=== PATIENT | female | born 1930 | race Caucasian/White ===

== ENCOUNTER 2016-08-28 03:44 | Inpatient (IN) | payer MEDICARE, OTHER, MEDICAID ==
[~2016-08-28] VITALS: Ht 154.9 cm; Wt 68.8 kg
--- NOTE | ~2016-08-28 | DS ---
PATIENT'S NAME: JUSTIN SMITH [facility] AGE: 85 Y [address] ROOM: [address] [address] LOCATION: [facility] [place] ADMIT DATE: 08/28/2016 Discharge Summary DISCHARGE DATE: 08/30/2016 FAMILY PHYSICIAN: RAFAEL COPPOLA PA-C ATTENDING PHYSICIAN: Mitzy Hilton PRINCIPAL DIAGNOSES: 1. Abdominal pain. 2. 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 3. Chronic obstructive pulmonary disease. 4. Iatrogenic hyperthyroidism. 5. Chronic kidney disease 3. HOSPITAL COURSE: Please reference any of the admitting data to the history and physical dictated by Dr.Chung Saldaña. An 85-year-old female who was admitted with abdominal pain with CT scan concerning for cecal volvulus. She was given supportive cares. A consultation ensued with Gastroenterology Service, Dr. Urban. An abdominal x-ray was ordered to further evaluate. An NG tube was placed with low intermittent suction, and the patient was kept nothing by mouth. Neostigmine was then ordered and given. Consultation with Surgery was ordered. Dr. Matt Anderson of General Surgery evaluated the patient to find improvement with the x-ray, so a barium enema imaging order was obtained, which showed no evidence of blockage or volvulus. The contrast entered the small bowel easily, so no surgery was indicated. Clinically, she also showed improvement by next day. The NG tube was pulled. She was started on diet and tolerated it well. The patient did mobilize safely. The remaining of her chronic conditions were maintained by her home medicines without any complications. DVT prophylaxis maintained with pneumatic compression devices and was started on Lovenox when no surgery was indicated. CONSULTING PROVIDERS: 1. Dr. Urban of Gastroenterology. 2. Dr. Anderson, Surgery. LABORATORY FINDINGS: Laboratory findings show a CBC on 08/29/2016 as white blood cell count of 6.8, hemoglobin of 11.2, hematocrit of 33.8, and a platelet count of 115. Chemistry panel on 08/29/2016 showed a sodium of 143, potassium of 3.5, chloride of 111, CO2 of 25, BUN of 24, creatinine of 1.6 down from 1.9 on admission. Liver functions were within normal limits. Amylase was 57 and lipase was 166. Lactate was 1.0. PATIENT'S NAME: JUSTIN SMITH [facility] AGE: 85 Y [address] ROOM: [id number] [place], [place] [address] LOCATION: [facility] [place] ADMIT DATE: 08/28/2016 Discharge Summary DISCHARGE DATE: 08/30/2016 FAMILY PHYSICIAN: RAFAEL COPPOLA PA-C ATTENDING PHYSICIAN: Mitzy Hilton A TSH was 0.144 and a free T4 was 2.0. RADIOLOGIC IMAGING: CT findings from outside hospital as reviewed in the hospital course. Unprepped barium enema showed free flow of the barium through the colon with no obstructing or constricting colon lesion identified. No findings of the colon volvulus were identified. Abdominal x-ray showed no free air with a nondistended small bowel loop and nondistended colon with improvement in the bowel pattern when compared to the previous imaging. The abdominal x-ray on 08/29/2016 for followup showed a small volume of residual barium suspension visualized in the colon. DISCHARGE MEDICATIONS: 1. Citracal D one tablet p.o. every day. 2. Levothyroxine 75 mcg p.o. every day before breakfast. This is a dose change. 3. Simvastatin 40 mg p.o. every night at bedtime. 4. Incruse Ellipta inhaler one puff inhalation every day. 5. Tylenol 1000 mg p.o. every 4 hours as needed. 6. Ibuprofen 200 mg p.o. every 6 hours as needed. 7. FiberCon one tablet p.o. every day. 8. Lasix 40 mg p.o. every day. 9. Lisinopril 20 mg p.o. every day. To be held until followup with primary care provider secondary to a creatinine of 1.6. 10. Probiotic one tablet p.o. every day. 11. Prolia 1 mL subcutaneous every six months. 12. Meclizine 1 tablet p.o. every day. 13. Symbicort 160/4.5 mcg inhaler 2 puffs inhalation twice daily. DISCHARGE INSTRUCTIONS: The patient will be discharged to home. Diet to remain low sodium. Activity as tolerated. She should have followup appointment with her primary care provider, Rafael Coppola PA-C, in [place], [place], on 09/06/2016 at 10 a.m. At that followup, she should have addressed a complete metabolic panel to evaluate her renal function as her most recent creatinine was 1.6 while in the hospital. Her ALEX inhibitor should be held until further evaluated and recommendations can be made by her primary care provider. Blood pressure was stable at PATIENT'S NAME: JUSTIN SMITH [facility] AGE: 85 Y [address] ROOM: [place] [address] LOCATION: [facility] [place] ADMIT DATE: 08/28/2016 Discharge Summary DISCHARGE DATE: 08/30/2016 FAMILY PHYSICIAN: RAFAEL COPPOLA PA-C ATTENDING PHYSICIAN: Mitzy Hilton discharge. The patient should also have a followup of her thyroid stimulating hormone and free T4 in six weeks secondary to the changes in her medication regimen. The above line of management was discussed with the patient who stated complete understanding of the outlined plan. All questions were answered with statements of satisfaction. Thank you for allowing us to participate in the care of this patient while at [facility]. LUCY BORRERO APRN, APRN FOR MD YUNI ALVAREZ/eliud /[id number] CC: RAFAEL COPPOLA PA-C d: t: 09/09/16 0421, DISCHARGE SUMMARY
--- NOTE | ~2016-08-28 | HP ---
PATIENT'S NAME: JUSTIN SMITH [facility] AGE: 85 Y [address] ROOM: [place] [address] LOCATION: [facility] [place] ADMIT DATE: 08/28/2016 History & Physical DISCHARGE DATE: FAMILY PHYSICIAN: PHYSICIAN, UNKNOWN ATTENDING PHYSICIAN: CHEIKH ZAVALA DATE OF SERVICE: CHIEF COMPLAINT: Abdominal pain. HISTORY OF PRESENT ILLNESS: This is an 85-year-old female, very pleasant female, who says that yesterday morning she woke up with diffuse abdominal pain, intensity about 4- 6/10. It is constant. Last time she had a bowel movement was yesterday morning and it was normal. Last night, the pain persisted, and she also felt nauseous. She actually vomited once of bilious contents. Last night, she passed flatus. Because of the diffuse abdominal pain, the patient went to outside facility last night for evaluation. At the outside facility in [place], CT scan of the abdomen and pelvis without contrast shows abnormal appearance of the cecum. Cecal volvulus should be excluded. The cecum is located in the left abdomen and distended with mild adjacent edema. The remainder of the colon is decompressed. The small bowel is not dilated. Small pancreatic calcifications are consistent with mild chronic pancreatitis. Blood work was remarkable for creatinine of 2.3 and GFR over 22 and leukocytosis with white blood cells of 12.1. Lipase was normal. Because of the concern for the cecal volvulus, the patient was referred here. When the patient was transferred here, I also spoke to the on-call software quality engineer, Dr. Urban, and already recommended the recommendation, which I will be dictating in my assessment and plan. The plan of care has been formulated with the on-call software quality engineer. REVIEW OF SYSTEMS: As mentioned in the history of present illness. All other systems were reviewed and they were negative except those mentioned in the history of present illness. PAST MEDICAL HISTORY: 1. CKD stage 3. 2. Hyperlipidemia. 3. COPD, not on home oxygen. 4. History of C diff in the past. 5. Hypertension. 6. Hypothyroidism. PATIENT'S NAME: JUSTIN SMITH [facility] AGE: 85 Y [address] ROOM: [place] [address] LOCATION: [facility] [place] ADMIT DATE: 08/28/2016 History & Physical DISCHARGE DATE: FAMILY PHYSICIAN: PHYSICIAN, UNKNOWN ATTENDING PHYSICIAN: CHEIKH ZAVALA ALLERGIES: DIFLUCAN AND LEVAQUIN. HOME MEDICATIONS: Currently has been reconciled. SOCIAL HISTORY: The patient was a former cigarette smoker. She quit about 5 years ago. She smoked about 1 pack per day for 50 years. She denies any alcohol or any illegal drug use. FAMILY HISTORY: Both parents from [facility] at old age. PAST SURGICAL HISTORY: 1. Tonsillectomy. 2. Right ovarian cyst removal. 3. Hysterectomy. 4. Abdominal hernia surgery x2 in the past. PHYSICAL EXAMINATION: VITAL SIGNS: At the time of my evaluation, temperature was 98.5, heart rate was 91, respirations were 16, blood pressure was 155/94, saturation was 94% on room air. GENERAL APPEARANCE: Alert and oriented x3, in no acute distress. HEENT: Pupils are equally round and reactive to light. Extraocular muscles intact. Anicteric sclerae. Nasal turbinates are normal bilaterally. Moist oral mucosa. NECK: No JVD. CARDIOVASCULAR: Regular rate and rhythm. Normal S1, S2. No murmur, no rubs, no gallops. RESPIRATORY: Clear to auscultation. No rales, no rhonchi, no crackles, no wheezing. ABDOMEN: Obese, mildly distended, diffusely tender to palpation about 2-3/10 intensity. No rebound, no abdominal rigidity. Bowel sounds are present. No mass. EXTREMITIES: No edema in upper or lower extremities. SKIN: No ulcer, no rash, no cyanosis. NEUROLOGICAL: Grossly nonfocal. LABORATORY DATA: Blood work from our facility is currently pending. Blood work from the outside facility on the day of transfer showed sodium 132, potassium 4.0, chloride 96, carbon dioxide 23, anion gap 17, glucose 144, BUN 40. Creatinine 2.3. Calcium 10.0. Total protein 7.4, albumin 3.8, alkaline phosphatase 102, PATIENT'S NAME: JUSTIN SMITH [facility] AGE: 85 Y [address] ROOM: [place] [address] LOCATION: [facility] [place] ADMIT DATE: 08/28/2016 History & Physical DISCHARGE DATE: FAMILY PHYSICIAN: PHYSICIAN, UNKNOWN ATTENDING PHYSICIAN: CHEIKH ZAVALA ALT 18, AST 19, total bilirubin is 0.7. GFR 22, amylase 79, lipase 214, CRP 1.9. White blood cells 12.1, hemoglobin 13.7, hematocrit 40.9, and platelets 122. Urinalysis, negative for UTI. IMAGES: As mentioned in the history of present illness, the CT scan of the abdomen and pelvis. ASSESSMENT AND PLAN: 1. Regarding her abdominal pain, it is concerning for a cecal volvulus: I have already spoken to the on-call GI and the plan per GI recommendation will be n.p.o. Tap water enema 1 L x1, Neostigmine IV 2 mg given over 5 minutes. I will monitor the heart rate very closely to watch for bradycardia and have the atropine in the room ready if it becomes bradycardic. Get a complete gastrointestinal series of x-ray in the morning. IV fluids for hydration. Pain control with IV morphine p.r.n., Zofran p.r.n. for nausea. Further plan will depend on clinical course and per GI evaluation in the morning. 2. Regarding her chronic kidney disease stage 3: Currently, it seems to be acute kidney injury on chronic kidney disease stage III: IV fluids for hydration. 3. Regarding her chronic obstructive pulmonary disease: Not in flare. We will continue nebulization p.r.n. 4. Regarding her hypertension: Home medication has to be reconciled first before it can be addressed. Depending on the blood pressure, we will decide about to continue or to hold the home blood pressure medication for now. 5. Regarding her hypothyroidism: We will check a TSH and titrate the home dose of levothyroxine if needed. 6. Regarding her hyperlipidemia: Home medication has to be reconciled first before it can be addressed. 7. She is a DO NOT RESUSCITATE/DO NOT INTUBATE. 8. Deep vein thrombosis prophylaxis: Compression devices for now given that the patient may require colonoscopy for decompression. Time spent in care on the day of admission 50 minutes, where 20 minutes was spent on chart review, and 30 minutes was in coordination of care with the on- call gastroenterology about the plan of care and also including counseling to the patient about addressing all her questions and concerns to her satisfaction and I also went over the plan of care in detail with the patient and the patient's nurse. Further plan will depend on clinical course. CHEIKH ZAVALA MD PATIENT'S NAME: JUSTIN SMITH [facility] AGE: 85 Y [address] ROOM: [place] [address] LOCATION: [facility] [place] ADMIT DATE: 08/28/2016 History & Physical DISCHARGE DATE: FAMILY PHYSICIAN: PHYSICIAN, UNKNOWN ATTENDING PHYSICIAN: CHEIKH ZAVALA/eliud /[id number] D: [id number] T: [id number] HISTORY & PHYSICAL
--- NOTE | ~2016-08-28 | CON ---
PATIENT'S NAME: JUSTIN SMITH [facility] AGE: 85 Y [address] ROOM: [place] [address] LOCATION: [facility] [place] ADMIT DATE: 08/28/2016 Consultation DISCHARGE DATE: FAMILY PHYSICIAN: RAFAEL COPPOLA PA-C ATTENDING PHYSICIAN: CHEIKH ZAVALA DATE OF CONSULTATION: 08/28/2016 REFERRING PHYSICIAN: Nyasia Urban MD CHIEF COMPLAINT: Concern for possible cecal volvulus. HISTORY OF PRESENT ILLNESS: The patient is an 85-year-old female, who was in her usual state of good health a couple of days ago. Then a day or so ago, she developed a fairly abrupt onset of diffuse abdominal distention and pain. She did have some nausea at times but no vomiting. She went to a local emergency room where she had a CT scan that did not diagnose a cecal volvulus but was felt to be concerning for it. She was transferred to [facility]. She had x- rays this morning that really did not show evidence of volvulus and no evidence of obstruction. On my arrival, the patient states she had some intermittent gas type pains earlier today but minimal pain now. She had a bowel movement yesterday and has passed a small amount of flatus since then. She reports she has had episodes like this in the past. There has been a few years since the last one. She is not aware of any evidence of a volvulus or twisted bowel in the past. She has had a previous exploratory laparotomy for adhesions many years ago. PAST MEDICAL HISTORY: Positive for stage 3 kidney disease, hypercholesterolemia, COPD, hypertension, hypothyroidism. PREVIOUS SURGERIES: Include cataracts, total hysterectomy, exploratory laparotomy with lysis of adhesions, tonsils and adenoids. MEDICATIONS: 1. FiberCon. 2. Ibuprofen. 3. Albuterol. 4. Levothyroxine. 5. Lisinopril. 6. Meclizine. 7. Probiotic. 8. Prolia. PATIENT'S NAME: JUSTIN SMITH [facility] AGE: 85 Y [address] ROOM: [place] [address] LOCATION: [facility] [place] ADMIT DATE: 08/28/2016 Consultation DISCHARGE DATE: FAMILY PHYSICIAN: RAFAEL COPPOLA PA-C ATTENDING PHYSICIAN: CHEIKH ZAVALA 9. Simvastatin. 10. Symbicort. ALLERGIES: DIFLUCAN AND LEVAQUIN. SOCIAL HISTORY: The patient is . She has 2 children. She is a former smoker with a 50- pack-year history. No history of alcohol abuse. REVIEW OF SYSTEMS: Documented in the nursing assessment form, and it has been reviewed with the patient. PHYSICAL EXAMINATION: GENERAL: The patient is an elderly but well-nourished female. She is alert and oriented. She does not appear to be in any obvious distress or discomfort. VITAL SIGNS: Temperature 98.5, blood pressure 155/94, pulse 91, respirations 16, saturations are 94%. HEENT: Normocephalic, atraumatic. Pupils are equal. There is no scleral icterus. External ears, nose, and eyelids are unremarkable. The oropharynx is clear. She does have an NG tube in her nares. NECK: Trachea is midline. There are no masses or adenopathy. Breathing is nonlabored. There is no accessary muscle use. LUNGS: Clear to auscultation without rales, rhonchi, or wheezing. HEART: Regular rate and rhythm. ABDOMEN: Mildly distended. She does have bowel sounds present. When palpating the abdomen, she states that it does not feel good but does not really elicit any real pain response. No focal pain. No rebound or guarding. No obvious hernias other than a small umbilical hernia. EXTREMITIES: No cyanosis or clubbing. She is moving all 4 extremities. ASSESSMENT AND PLAN: An 85-year-old female with concerns of cecal volvulus. Unfortunately, the CAT scan is not really diagnostic, and the x-ray today even looks a little better. She certainly does not look toxic at this point. I do not see anything pushing us into exploratory laparotomy, even though if this is a cecal volvulus, we will probably need exploration. I think we will plan on obtaining a barium enema to either rule in or out a cecal volvulus and get a better look at this. I discussed this all with the patient. PATIENT'S NAME: JUSTIN SMITH [facility] AGE: 85 Y [address] ROOM: [place] [address] LOCATION: [facility] [place] ADMIT DATE: 08/28/2016 Consultation DISCHARGE DATE: FAMILY PHYSICIAN: RAFAEL COPPOLA PA-C ATTENDING PHYSICIAN: CHEIKH ZAVALA MD JTM/modl /[id number] CC: Nyasia Urban MD d: 08/28/16 2137 t: 09/02/16 0944, CONSULTATION REPORT
--- NOTE | ~2016-08-28 | CON ---
[facility]GE[facility] 85 Y [address] ROOM: [place] [address] LOCATION: [facility] [place] ADMIT DATE: 08/28/2016 Consultation DISCHARGE DATE: FAMILY PHYSICIAN: PHYSICIAN, UNKNOWN ATTENDING PHYSICIAN: CHEIKH ZAVALA REASON FOR CONSULT: Abdominal distention, question of cecal volvulus. HISTORY OF PRESENT ILLNESS: This is an 85-year-old female, who was transferred from [facility] in [place] with history of abdominal distention and CT scan of the abdomen, questioning cecal volvulus. The patient was seen in her local emergency room with history of abdominal distention, nausea with CT scan of the abdomen and findings as noted above. She was transferred here early this morning for further management. At the present time, she complains of abdominal distention, but denies any nausea and vomiting and did not require any narcotics during the night. She states she has had a similar issue; however, not clear several years ago when she was transferred to [place] and was treated with conservative management. Initial blood work at her local hospital did reveal mildly elevated white cell count, but otherwise, her labs were relatively unremarkable. PAST MEDICAL HISTORY: 1. Chronic obstructive pulmonary disease. 2. Hypertension. 3. Hypothyroidism. 4. Chronic renal failure. PAST SURGICAL HISTORY: Total hysterectomy, previous appendectomy, and abdominal surgery for adhesions. MEDICATIONS: At home included: 1. Citracal. 2. FiberCon. 3. Lasix. 4. Ibuprofen. 5. Synthroid. 6. Lisinopril. 7. Simvastatin. 8. Tylenol. [facility]GE[facility] 85 Y [address] ROOM: [address] [address] LOCATION: [facility] [place] ADMIT DATE: 08/28/2016 Consultation DISCHARGE DATE: FAMILY PHYSICIAN: PHYSICIAN, UNKNOWN ATTENDING PHYSICIAN: CHEIKH ZAVALA ALLERGIES: NOTED TO DIFLUCAN AND LEVAQUIN. SOCIAL HISTORY: Former smoker [id number] smoking. None recently. Denies alcohol use. FAMILY HISTORY: None for GI cancer. REVIEW OF SYSTEMS: The 10-point review of systems is otherwise negative except as noted above. PHYSICAL EXAMINATION: GENERAL: Elderly female in no acute distress. VITAL SIGNS: As recorded in the nursing sheet are stable. HEENT: Nonicteric sclerae. Pupils are round and reactive. NECK: Supple without palpable nodes or thyromegaly. CHEST: Clear to auscultation. HEART: S1, S2 normal. ABDOMEN: Distended with tympanitic bowel sounds. There is mild diffuse tenderness more so on the left upper quadrant without rebound or rigidity. RECTAL: No impaction. There are brownish stools. EXTREMITIES: No edema. NEUROLOGIC: Awake, alert, and appropriate without any focal deficits. LABORATORY DATA: Further lab work and abdominal films are ordered and are pending. ASSESSMENT AND PLAN: An 85-year-old female with abdominal distention and question of cecal volvulus as per CT scan of the abdomen. More than likely, this will require a surgical intervention and therefore, I called the surgeon on-call, Dr. Anderson, in regard to his involvement with this patient's care. I have spoken to the hospitalist who admitted the patient, Dr. Zavala, as well as the plan of care with the patient herself. We will await the results of her abdominal symptoms with further direction in association with the surgeon's input prior to any invasive procedures. Thank you for this consult. KAYLEE ANDRADE MD PATIENT'S NAME: JUSTIN SMITH [facility] AGE: 85 Y [address] ROOM: [place] [address] LOCATION: [facility] [place] ADMIT DATE: 08/28/2016 Consultation DISCHARGE DATE: FAMILY PHYSICIAN: PHYSICIAN, UNKNOWN ATTENDING PHYSICIAN: CHEIKH ZAVALA AM/eliud /[id number] d: 08/28/1658 t: 08/28/16 0933, CONSULTATION REPORT
[2016-08-28] MEDS ORDERED: FIBERCON1 TAB PO (04:56)
[2016-08-28] MEDS ORDERED: LASIX40 MG PO (04:56)
[2016-08-28] MEDS ORDERED: CITRACAL+D(315M1 TAB PO (04:56)
[2016-08-28] MEDS ORDERED: IBUPROFEN IB200 MG PO (04:58)
[2016-08-28] MEDS ORDERED: INCRUSE ELLI62.5 MCG INH (05:17)
[2016-08-28] MEDS ORDERED: LEVOTHROID (S112 MCG PO (05:18)
[2016-08-28] MEDS ORDERED: PROBIOTIC1 EAC1 PO (05:19)
[2016-08-28] MEDS ORDERED: PRINIVIL (ZESTR20 MG PO (05:19)
[2016-08-28] MEDS ORDERED: PROLIA60 MG/ML SUB-Q (05:21)
[2016-08-28] MEDS ORDERED: ZOCOR40 MG PO (05:22)
[2016-08-28] MEDS ORDERED: MECLIZINE HCL25 MG PO (05:23)
[2016-08-28] MEDS ORDERED: TYLENOL EXTRA500 MG PO (05:24)
[2016-08-28] MEDS ORDERED: SYMBICORT 16010.2 GM INH (05:28)
[2016-08-28 11:37] LABS: BASOPHIL % 0.3 %; EOSINOPHIL # 0.2 K/uL (0.0-0.5); HEMATOCRIT 37.7 % (30.0-46.0); HEMOGLOBIN 12.7 g/dL (10.0-15.0); IMMATURE GRANULOCYTE # 0.1 K/uL (0.0-0.3); IMMATURE GRANULOCYTE % 0.7 %; LYMPHOCYTE # 0.6 K/uL (0.8-4.0); LYMPHOCYTE % 6.1 %; MCH 32.8 pg (27.0-34.0); MCHC 33.7 gm/dL (32.0-36.5); MCV 97.4 fl (83.0-98.0); MONOCYTE # 0.8 K/uL (0.0-1.0); MONOCYTE % 8.6 %; MPV 10.1 fl (9.4-12.4); NEUTROPHIL # (ANC) 7.6 K/uL (1.8-7.8); NEUTROPHIL % 82.3 %; NRBC % 0 /100WBC (0-0.00); PLATELET COUNT 118 K/uL (150-450); RBC 3.87 M/uL (3.00-5.00); WBC 9.2 K/uL (4.0-11.0)
[2016-08-28 11:46] LABS: INR - (THERAPEUTIC) 1.02 (0.92-1.07); PROTIME 10.7 SECONDS (9.8-11.4); PTT 32 SECONDS (25-32)
[2016-08-28 11:59] LABS: ALBUMIN 3.3 gm/dL (3.5-5.0); ANION GAP 15.2 (10.0-19.0); CALCIUM 8.6 mg/dL (8.5-10.5); CREATININE 1.9 mg/dL (0.5-1.1); POTASSIUM 4.2 mMol/L (3.7-5.1); TOTAL BILIRUBIN 0.8 mg/dL (0.0-1.5); TOTAL PROTEIN 6.4 g/dL (6.0-8.4)
[2016-08-28 12:58] LABS: ALBUMIN 3.3 gm/dL (3.5-5.0); TOTAL BILIRUBIN 0.7 mg/dL (0.0-1.5); TOTAL PROTEIN 6.8 g/dL (6.0-8.4)
[2016-08-28 13:23] LABS: BILIRUBIN URINE NEGATIVE (NEGATIVE); BLOOD URINE NEGATIVE /UL (NEGATIVE); COLOR URINE YELLOW (YELLOW); GLUCOSE URINE NEGATIVE (NEGATIVE); KETONE URINE NEGATIVE (NEGATIVE); LEUKOCYTES URINE 25 /UL (NEGATIVE); NITRITE URINE NEGATIVE (NEGATIVE); PROTEIN URINE 30 mg/dL (NEGATIVE); SPEC GRAVITY URINE 1.005 (1.003-1.035); TURBIDITY URINE CLEAR (CLEAR); UROBILINOGEN URINE NORMAL (NORMAL)
[2016-08-28 13:40] LABS: BACTERIA URINE MODERATE (NEGATIVE); RBC URINE 0-2 #/HPF (NEGATIVE)
[2016-08-28 13:41] LABS: AMORPHOUS URINE 1+ (NEGATIVE)
[2016-08-29 05:52] LABS: BASOPHIL % 0.4 %; EOSINOPHIL # 0.2 K/uL (0.0-0.5); EOSINOPHIL % 2.5 %; HEMATOCRIT 33.8 % (30.0-46.0); HEMOGLOBIN 11.2 g/dL (10.0-15.0); IMMATURE GRANULOCYTE % 0.3 %; LYMPHOCYTE # 0.7 K/uL (0.8-4.0); LYMPHOCYTE % 9.6 %; MCH 32.4 pg (27.0-34.0); MCHC 33.1 gm/dL (32.0-36.5); MCV 97.7 fl (83.0-98.0); MONOCYTE # 0.8 K/uL (0.0-1.0); MONOCYTE % 12.1 %; MPV 10.4 fl (9.4-12.4); NEUTROPHIL # (ANC) 5.1 K/uL (1.8-7.8); NEUTROPHIL % 75.1 %; NRBC % 0 /100WBC (0-0.00); PLATELET COUNT 115 K/uL (150-450); RBC 3.46 M/uL (3.00-5.00); RDW-CV 13.1 % (11.9-14.6); WBC 6.8 K/uL (4.0-11.0)
[2016-08-29 06:11] LABS: ANION GAP 10.5 (10.0-19.0); CALCIUM 8.1 mg/dL (8.5-10.5); CREATININE 1.6 mg/dL (0.5-1.1); POTASSIUM 3.5 mMol/L (3.7-5.1)
== END 2016-08-30 16:45 | disposition disaster alternative care site (69) | DRG 389 ==
LOC: GMSU 04:14
PROVIDERS: Internal Medicine; ADMIT Internal Medicine
DX: K56.2 Volvulus (principal); N17.9 Acute kidney failure, unspecified; K86.1 Other chronic pancreatitis; I50.9 Heart failure, unspecified; J44.9 Chronic obstructive pulmonary disease, unspecified; I12.9 Hypertensive chronic kidney disease with stage 1 through stage 4 chronic kidney disease, or unspecified chronic kidney disease; N18.3 Chronic kidney disease, stage 3 (moderate); Z66 Do not resuscitate; E87.6 Hypokalemia; E03.2 Hypothyroidism due to medicaments and other exogenous substances; E78.5 Hyperlipidemia, unspecified; Z86.19 Personal history of other infectious and parasitic diseases; Z87.891 Personal history of nicotine dependence
CPT/HCPCS: J1650; J3480; J7042; J7050